=== PATIENT | female | born 1975 | race Caucasian/White ===

== ENCOUNTER → 2019-05-09 | Outpatient (CLI) | payer OTHER ==
--- NOTE | 2019-05-10 03:46 | RAD ---
LUMBAR SPINE 2-3V History: Pain. Technique: 3 views lumbar spine. Comparison: None. Findings: Normal alignment. No fracture. Normal vertebral body height. Mild multilevel degenerative disc changes most prominent T12-L1 and L5-S1. Lower lumbar facet arthropathy. Surgical clips upper abdomen. Impression: 1. Mild multilevel thoracolumbar spondylosis. Electronically signed by: Glenn Momin DO (05/10/2019 3:43 AM) [facility]
== END | disposition home or self-care (01) ==
LOC: RAD 17:44
PROVIDERS: ATTEND Registered Nurse
DX: M47.815 Spondylosis without myelopathy or radiculopathy, thoracolumbar region (principal); M12.88 Other specific arthropathies, not elsewhere classified, other specified site
CPT/HCPCS: 72100

== ENCOUNTER → 2021-03-26 | Emergency (ER) | payer OTHER ==
[~2021-03-26] VITALS: Ht 160 cm; Wt 104.9 kg
[~2021-03-26] MED LIST: GABA-586 PO; LISI20TA18 PO; MELO15TA23 PO
--- NOTE | 2021-03-26 15:46 | RAD ---
CT HEAD WITHOUT CONTRAST 03/26/2021 3:30 PM Indication: Headache Comparison: None Procedure: Multidetector CT imaging of the head was performed without the administration of contrast. Findings: There is no evidence of acute intracranial hemorrhage. There is no evidence of acute territ orial infarction. Please note that CT is limited for evaluation of acute ischemia. No mass effect or midline shift is identified . The ventricles and basilar cisterns have an appropriate appearance. No abnormal extra-axial fluid collections are seen. No acute osseous changes are identified. Impression: No evidence of acute intracranial abnormality CT DOSING PQRS STATEMENT: One or more of the following individualized dose reduction techniques were utilized for this examinat ion: 1. Automated exposure control 2. Adjustment of the mA and/or kV according to patient size 3. Use of iterative reconstruction technique Electronically signed by: Luisito Domínguez MD (03/26/2021 3:43 PM) [id number]
--- NOTE | 2021-03-26 15:52 | RAD ---
Site ID: [id number] EXAMINATION: XR CHEST 1V. HISTORY: 46 years Female .. Headache. COMPARISON: April 02, 2016. Findings: The lungs are clear. The heart size is normal. There is no effusion or pneumothorax. The mediastinum and nathalie appear unremarkable. Impression: Unremarkable study. Electronically signed by: Angel Burnett MD (03/26/2021 3:50 PM) [id number]
--- NOTE | 2021-03-26 15:59 | PHYS DOC ---
Past History Past Surgical History: No Surgical History General Adult EDM: Chief Complaint: HYPERTENSION HPI: HPI: 46 yo F past medical history of chronic back and neck pain, presents to the ED with concern for elevated blood pressure that was checked at [facility] in [place], just prior to arrival. Patient states she is taking meloxicam and gabapentin for her chronic lumbar back pain with sciatica. States at the clinic her blood pressure was 165/110 and 177/110. Takes no blood pressure medications. Reports an associated frontooccipital headache and anxiety stating "my nerves are getting to me." Also states she has intermittent blurry vision while driving stating she was seeing spots, currently denies any blurry vision. Also reports increased urinary frequency and urgency for the past 30 minutes, no associated dysuria or hematuria. Pt reports no new or worsening back/neck pain, no blunt injury or exacerbation or pain. Review of Systems: Review of Systems: Constitutional: Denies fever or chills Eyes: Denies eye discharge or redness HENT: Denies nasal congestion or sore throat Respiratory: Denies cough or shortness of breath Cardiovascular: Denies chest pain or edema GI: Denies abdominal pain, nausea, vomiting, bloody stools or diarrhea : Denies dysuria or hematuria or vaginal bleeding Musculoskeletal: Denies back pain or joint pain Integument: Denies rash or diaphoresis Neurologic: Denies focal weakness or sensory changes Endocrine: Denies polyuria or polydipsia Lymphatic: Denies swollen glands Psychiatric: Denies depression or suicidal ideations Allergies: Allergies: Allergies Coded Allergies Type Severity Reaction Last Updated Verified No Known Drug Allergies 03/26/21 No Physical Exam: PE: Constitutional: Well developed, well nourished, no acute distress, non-toxic appearance. HENT: Normocephalic, atraumatic, Eyes: PERRLA, EOMI, conjunctiva normal, no discharge. Neck: Normal range of motion, supple, Cardiovascular: S1/2 present, regular rhythm Lungs & Thorax: Speaking in full sentences, bilateral equal chest rise, no tachypnea or increased work of breathing Abdomen: soft, no tenderness, Skin: Warm, dry, no erythema, no rash. [] Back: No tenderness, no CVA tenderness. [] Extremities: No tenderness, no cyanosis, no lower extremity edema Neurologic: CN2-12 intact, no facial droop, Alert and oriented X 3, normal motor function, normal sensory function, no focal deficits noted. [] Psychologic: Affect normal, judgement normal, very anxious Current Patient Data: Vital Signs: Vital Signs Date Time Temp Pulse Resp B/P (MAP) Pulse Ox O2 Delivery O2 Flow Rate FiO2 03/26/21 15:25 109 18 180/101 (127) 99 EKG: EKG: Sinus rhythm 96 bpm, left axis deviation, normal intervals, no T wave inversion, no ST ovation or ST depression Radiology/Procedures: Radiology/Procedures: IMAGING REPORT Signed PATIENT: MIRZA JACOBO ACCOUNT: [id number] : 1975 LOCATION: ER AGE: 46 SEX: F EXAM STATUS: REG ER ORD. PHYSICIAN: LINA CASIANO DO REASON: headache PROCEDURE: CT HEAD WO CONTRAST CT HEAD WITHOUT CONTRAST 03/26/2021 3:30 PM Indication: Headache Comparison: None Procedure: Multidetector CT imaging of the head was performed without the administration of contrast. Findings: There is no evidence of acute intracranial hemorrhage. There is no evidence of acute territorial infarction. Please note that CT is limited for evaluation of acute ischemia. No mass effect or midline shift is identified . The ventricles and basilar cisterns have an appropriate appearance. No abnormal extra-axial fluid collections are seen. No acute osseous changes are identified. Impression: No evidence of acute intracranial abnormality CT DOSING PQRS STATEMENT: One or more of the following individualized dose reduction techniques were utilized for this examination: 1. Automated exposure control 2. Adjustment of the mA and/or kV according to patient size 3. Use of iterative reconstruction technique Electronically signed by: Luisito Denise MD (03/26/2021 3:43 PM) [id number] DICTATED AND SIGNED BY: LUISITO DENISE MD DATE: 03/26/21 1541 CC: АННА CHAMORRO; LINA CASIANO DO ~MTH0 0 IMAGING REPORT Signed PATIENT: MIRZA JACOBO ACCOUNT: [id number] : 1975 LOCATION: ER AGE: 46 SEX: F EXAM STATUS: REG ER ORD. PHYSICIAN: LINA CASIANO DO REASON: htn PROCEDURE: PORTABLE CHEST 1V Site ID: [id number] EXAMINATION: XR CHEST 1V. HISTORY: 46 years Female .. Headache. COMPARISON: April 02, 2016. Findings: The lungs are clear. The heart size is normal. There is no effusion or pneumothorax. The mediastinum and nathalie appear unremarkable. Impression: Unremarkable study. Electronically signed by: Leroy Burnett MD (03/26/2021 3:50 PM) [id number] DICTATED AND SIGNED BY: LEROY BURNETT MD DATE: 03/26/21 1549 CC: АННА CHAMORRO; LINA CASIANO DO ~MTH0 0 Heart Score: C/O Chest Pain: No Risk Factors: Risk Factors: DM, Current or recent (<one month) smoker, HTN, HLP, family history of CAD, obesity. Risk Scores: Score 0 - 3: 2.5% MACE over next 6 weeks - Discharge Home Score 4 - 6: 20.3% MACE over next 6 weeks - Admit for Clinical Observation Score 7 - 10: 72.7% MACE over next 6 weeks - Early Invasive Strategies Course & Med Decision Making: Course & Med Decision Making Pertinent Labs and Imaging studies reviewed. (See chart for details) Concern for new onset, uncontrolled, asymptomatic hypertension in the setting of anxiety and chronic neck/back pain, no new injury or trauma. Blurry vision and headache has resolved, pt is not . BP lowered on repeat check. Will discharge home with strict ED return precautions were given for chest pain, confusion, neurologic deficits or dyspnea. Encouraged urgent outpatient follow- up with PMD and pain management. Life-threatening processes were considered but are low suspicion at this time, given history, physical exam and ED workup. Pt was educated on all prescription medications and adverse effects. All patient's questions were answered and pt was stable at time of discharge. Life/limb-threatening differential includes but is not limited to, meningitis, encephalitis, intracranial hemorrhage, obstructive hydrocephaly, CVA, carbon monoxide poisoning, cerebral or cavernous venous thrombosis, hypertensive emergency, preeclampsia, giant cell arteritis, glaucoma, carotid or vertebral artery dissection, superior vena cava syndrome, infection, optic neuritis, or space-occupying lesions. I have spoken with the patient and/or caregivers. I explained the patient's condition, diagnoses and treatment plan based on the information available to me at this time. I have answered the patient and/or caregiver's questions and addressed any concerns. The patient and/or caregivers have a good understanding of patient's diagnosis, condition and treatment plan as can be expected at this point. Vital signs have been stable. Patient's condition is stable and appropriate for discharge from the emergency department. Patient will pursue further outpatient evaluation with primary care physician or other designated or consulting physician as outlined in the discharge instructions. The patient and/or caregivers are agreeable to this plan of care and follow-up instructions have been explained in detail. The patient and/or caregivers have received these instructions in written form and have expressed an understanding of the discharge instructions. The patient and/or caregivers are aware that any significant change of condition or worsening of symptoms should prompt immediate return to this or the closest emergency department or call to 911. Henrique Disclaimer: Henrique Disclaimer: This electronic medical record was generated, in whole or in part, using a voice recognition dictation system. Departure Departure: Impression: Primary Impression: Uncontrolled hypertension Additional Impression: Chronic back pain Disposition: 01 HOME / SELF CARE / HOMELESS Condition: STABLE Referrals: АННА CHAMORRO (PCP) Follow-up with your primary care physician in 2-3 days for blood pressur echeck OR FOLLOW UP WITH FAMILY MEDICINE: [address] [facility], [facility] [address] [place] [address] Patient Instructions: Hypertension Additional Instructions: FOLLOW UP WITH PAIN MANAGEMENT: FOR DEFINITIVE MANAGEMENT [facility] [address] [facility], [facility] [address] [place] [address] EMERGENCY DEPARTMENT GENERAL DISCHARGE INSTRUCTIONS Thank you for coming to [facility] (ED) today and trusting us with you care. We trust that you had a positivie experience in our Emergency Department. If you wish to speak to the department management, you may call the director at [phone]. YOUR FOLLOW UP INSTRUCTIONS ARE FOLLOWS: 1. Do you have a private Doctor? If you do not have a private doctor, please ask for a resource list of physicians or clinics that may be able to assist you with follow up care. 2. The Emergency Physician has interpreted your x-rays. The X-Ray specialist will also review them. If there is a change in the findings, you will be notified in 48 hours when at all possible. 3. A lab test or culture has been done, your results will be reviewed and you will be notified if you need a change in treatment. ADDITIONAL INSTRUCTIONS AND INFORMATION: 1. Your care today has been supervised by a physician who is specially trained in emergency care. Many problems require more than one evaluation for a complete diagnosis and treatment. We recommend that you schedule your follow up appointment as recommended to ensure complete treatment of you illness or injury. If you are unable to obtain follow up care and continue to have a problem, or if your condition worsens, we recommend that you return to the ED. 2. We are not able to safely determine your condition over the phone nor are we able to give sound medical advice over the phone. For these safety reasons, if you call for medical advice we will ask you to come to the ED for further evaluation. 3. If you have any questions regarding these discharge instructions please call the ED at [phone]. SAFETY INFORMATION: In the interest of safety, wellness, and injury prevention; we encourage you to wear your sealbelt, if you smoke; quite smoking, and we encourage family to use a protective helmet for bicycling and other sporting events that present an increased risk for head injury. IF YOUR SYMPTOMS WORSEN OR NEW SYMPTOMS DEVELOP, OR YOU HAVE CONCERNS ABOUT YOUR CONDITION; OR IF YOUR CONDITION WORSENS WHILE YOU ARE WAITING FOR YOUR FOLLOW UP APPOINTMENT; EITHER CONTACT YOUR PRIMARY CARE DOCTOR, THE PHYSICIAN WHOSE NAME AND NUMBER YOU WERE GIVEN, OR RETURN TO THE ED IMMEDIATELY. LINA LENTZ DO Mar 26, 2021 15:59
[2021-03-26 16:34] LABS: CREATININE 0.7 mg/dL (0.6-1.0); GFR 90.5; POTASSIUM 3.6 mmol/L (3.5-5.1)
[2021-03-26 16:35] LABS: PREG TEST PT QUAL NEGATIVE (NEG)
[2021-03-26 16:43] LABS: ALBUMIN 3.7 g/dL (3.4-5.0); TOTAL BILIRUBIN 0.4 mg/dL (0.2-1.0); TOTAL PROTEIN 7.3 g/dL (6.4-8.2)
[2021-03-26 16:44] LABS: BASO % 0 % (0-3); EOS # 0.1 x10^3/uL (0.0-0.7); EOS % 1 % (0-3); HEMATOCRIT 43.2 % (36.0-47.0); HEMOGLOBIN 14.4 g/dL (12.0-15.5); LYMPH # 2.1 x10^3/uL (1.0-4.8); LYMPH % 32 % (24-48); MEAN CORPUSCULAR HEMOGLOBIN 29 pg (25-35); MEAN CORPUSCULAR HGB CONC 33 g/dL (31-37); MEAN CORPUSCULAR VOLUME 86 fL (79-100); MONO # 0.5 x10^3/uL (0.0-1.1); MONO % 8 % (0-9); NEUT # 3.9 x10^3uL (1.8-7.7); NEUT % 59 % (31-73); PLATELET COUNT 223 x10^3/uL (140-400); RED BLOOD COUNT 5.02 x10^6/uL (3.50-5.40); RED CELL DISTRIBUTION WIDTH 13.9 % (11.5-14.5); WHITE BLOOD COUNT 6.5 x10^3/uL (4.0-11.0)
[2021-03-26 17:31] LABS: BARBITURATES NEG (NEG); BENZODIAZEPINES NEG (NEG); CANNABINOIDS NEG (NEG); COCAINE NEG (NEG); METHADONE NEG (NEG); OPIATES NEG (NEG); PHENCYCLIDINE NEG (NEG)
[2021-03-26 17:38] LABS: AMPHETAMINE/METHAMPHETAMINE NEG (NEG)
[2021-03-26 17:58] LABS: BILIRUBIN,URINE NEG (NEG); CLARITY,URINE CLEAR; COLOR,URINE YELLOW; GLUCOSE,URINE NEG (NEG)
[2021-03-26 17:59] LABS: BACTERIA,URINE FEW /HPF (0-FEW); NITRITE,URINE NEG (NEG); RBC,URINE 0 /HPF (0-2); SQUAMOUS EPITHELIAL CELL,UR FEW /LPF; WBC,URINE 0 /HPF (0-4)
--- NOTE | 2021-03-26 19:40 | EKG ---
[address] [address] Test Date: 2021-03-26 Test Time: 15:39:48 Pat Name: MIRZA JACOBO Department: Room: Gender: F Amr Physician: MANUEL : 1975 Requested By: LINA CASIANO Order Number: [id number] Reading MD: Measurements Intervals [place] Rate: 96 P: 30 TX: 180 QRS: -7 QRSD: 78 T: 30 QT: 338 QTc: 428 Interpretive Statements SINUS RHYTHM LEFTWARD AXIS R-S TRANSITION ZONE IN V LEADS DISPLACED TO THE LEFT OTHERWISE NORMAL ECG RI6.02 No previous ECG available for comparison
[2021-04-04 10:12] VITALS: BP 138/84
== END ==
LOC: ER 15:05
DX: I10 Essential (primary) hypertension (principal); G89.29 Other chronic pain; M54.5 Low back pain; M54.2 Cervicalgia
CPT/HCPCS: 36415; 70450; 71045; 80053; 80307; 81001; 83880; 84484; 84703; 85025; 93005; 96374; 99285; J2060

== ENCOUNTER → 2021-04-04 | Day surgery (SDC) | payer OTHER ==
[2021-03-26 17:22] VITALS: BP 154/88
[~2021-04-04] MED LIST changes: +BUPIVACAINE MPF 0.25% 10 ML VIAL. ONE; +IOHEXOL 300 MG/ML 50 ML VIAL. ONE; +LIDOCAINE 1% PF 30 ML VIAL. ONE; +methylPREDNISolone ACETATE 40 MG/ML VIAL. ONE
== END | disposition home or self-care (01) ==
LOC: SDC 09:39
PROVIDERS: ATTEND Anesthesiology
DX: M46.1 Sacroiliitis, not elsewhere classified (principal); Z79.899 Other long term (current) drug therapy; Z91.013 Allergy to seafood
CPT/HCPCS: 27096; J1030; J3490; Q9967

== ENCOUNTER → 2021-05-30 | Day surgery (SDC) | payer OTHER ==
[~2021-05-30] MED LIST changes: -BUPIVACAINE MPF 0.25% 10 ML VIAL. ONE; -IOHEXOL 300 MG/ML 50 ML VIAL. ONE; -LIDOCAINE 1% PF 30 ML VIAL. ONE; -methylPREDNISolone ACETATE 40 MG/ML VIAL. ONE
[2021-05-30 12:10] VITALS: BP 128/89
== END | disposition home or self-care (01) ==
LOC: SURG 12:02
PROVIDERS: ATTEND Anesthesiology
DX: M53.3 Sacrococcygeal disorders, not elsewhere classified (principal); M54.16 Radiculopathy, lumbar region; M47.816 Spondylosis without myelopathy or radiculopathy, lumbar region; E66.9 Obesity, unspecified; J45.909 Unspecified asthma, uncomplicated; Z98.890 Other specified postprocedural states; Z79.899 Other long term (current) drug therapy
CPT/HCPCS: 99214; G0463